=== PATIENT | female | born 1970 | race Caucasian/White ===

== ENCOUNTER 2019-02-02 23:54 | Emergency (ER) | payer OTHER ==
[~2019-02-02] VITALS: Ht 175.3 cm; Wt 75.0 kg
[2019-02-03] MEDS ORDERED: AMOX-580 PO (00:23)
[2019-02-03] MEDS ORDERED: acetaminophen 325mg tablet PO ONE (00:25)
[2019-02-03 00:36] VITALS: BP 112/64
== END 2019-02-03 00:40 | disposition home or self-care (01) ==
LOC: ER 23:55
DX: S61.432A Puncture wound without foreign body of left hand, initial encounter (principal); S51.831A Puncture wound without foreign body of right forearm, initial encounter; Z79.82 Long term (current) use of aspirin; Z88.6 Allergy status to analgesic agent; Z79.899 Other long term (current) drug therapy; W55.01XA Bitten by cat, initial encounter; Y93.89 Activity, other specified; Y92.89 Other specified places as the place of occurrence of the external cause; Y99.8 Other external cause status
CPT/HCPCS: 99283